=== PATIENT | female | born 1945 | race Caucasian/White ===

== ENCOUNTER 2020-02-19 05:23 | Day surgery (SDC) | payer MEDICARE, BC ==
[2020-02-12 15:39] LABS: BASOPHILS % (AUTO) 0.4 % (0-1); EOSINOPHILS # (AUTO) 0.1 X10'3 (0-0.9); EOSINOPHILS % (AUTO) 1.5 % (0-6); LYMPHOCYTES # (AUTO) 2.3 X10'3 (1.1-4.8); LYMPHOCYTES % (AUTO) 27.9 % (21-51); MEAN CORPUSCULAR HGB CONC 32.8 g/dL (33.0-36.5); MEAN CORPUSCULAR VOLUME 88.4 FL (78-98); MEAN PLATELET VOLUME 7.5 FL (7.4-10.4); MONOCYTES # (AUTO) 0.7 X10'3 (0-0.9); MONOCYTES % (AUTO) 8.7 % (2-12); NEUTROPHILS # (AUTO) 5.2 X10'3 (1.8-7.7); NEUTROPHILS % (AUTO) 61.5 % (42-75); PRE OP HEMATOCRIT 41.7 % (35.0-45.0); PRE OP HEMOGLOBIN 13.7 g/dL (12.0-16.0); PRE OP PLATELET COUNT 267 X10'3 (140-440); RED BLOOD COUNT 4.71 X10'6 (4.20-5.60); RED CELL DISTRIBUTION WIDTH 13.3 % (11.5-14.5)
[2020-02-12 16:00] LABS: ALBUMIN 3.7 G/DL (3.4-5.0); ALBUMIN/GLOBULIN RATIO 1.1 (1.1-1.5); ALKALINE PHOSPHATASE 94 IU/L (46-116); BLOOD UREA NITROGEN 13 MG/DL (7-18); BUN/CREATININE RATIO 15.1 (6.6-38.0); CALCIUM 9.2 MG/DL (8.5-10.1); CHLORIDE 108 MMOL/L (99-107); CREATININE 0.86 MG/DL (0.40-0.90); PRE OP ALT 13 U/L (30-65); PRE OP ANION GAP 5 (8-16); PRE OP AST 9 U/L (10-37); PRE OP BILIRUB, TOTAL 0.3 MG/DL (0.0-1.0); PRE OP GLUCOSE 103 MG/DL (70-104); PRE OP POTASSIUM 3.7 MMOL/L (3.4-5.1); PRE OP SODIUM 144 MMOL/L (135-145); TOTAL PROTEIN 7.2 G/DL (6.4-8.2); eGFR 65 ML/MIN
[2020-02-19] VITALS (14 sets, daily range): BP systolic 132–149; BP diastolic 66–89
[~2020-02-19] VITALS: Ht 170.2 cm; Wt 68.0 kg
[~2020-02-19 05:23] MED LIST: CHOL500049 PO; DEXL60CA3 PO; SIMV-42 PO; ringers solution, lacted 1,000 ML IV SCH
[2020-02-19] MEDS ORDERED: cefazolin/dext.iso 2gm/50ml 50 ML IV ONE (05:30)
[2020-02-19] MEDS ORDERED: famotidine 20mg tablet PO ONE (05:30)
[2020-02-19] MEDS ORDERED: LIDOcaine 1% (10mg/ml) 2ml vial ONE (06:12)
[2020-02-19] MEDS ORDERED: LIDOcaine 1% 30ml preserv. free vial ONE (06:36)
[2020-02-19] MEDS ORDERED: BUPIVAcaine/PF 2.5 mg/ml (0.25%) 30ml vial ONE (06:37)
[2020-02-19] MEDS ORDERED: fentaNYL/PF 50MCG/1 ML 2ML syringe ONE ×2 (07:26→08:20)
[2020-02-19] MEDS ORDERED: LIDOcaine 2% (20mg/ml) 5ml vial ONE (07:27)
[2020-02-19] MEDS ORDERED: propofol inj 20 ML IV ONE (07:27)
[2020-02-19] MEDS ORDERED: rocuronium 10mg/ml inj IV ONE (07:28)
[2020-02-19] MEDS ORDERED: sevoflurane 250ml liquid IH ONE (07:37)
[2020-02-19] MEDS ORDERED: neostigmine methylsulfate 1 MG/ML 10ml vial ONE (08:19)
[2020-02-19] MEDS ORDERED: ondansetron/PF 4mg/2ml inj ONE (08:19)
[2020-02-19] MEDS ORDERED: glycopyrrolate 0.2mg/ml inj ONE (08:19)
[2020-02-19] MEDS ORDERED: dexamethasone sod phosphate 4mg/ml inj. ONE (08:19)
[2020-02-19] MEDS ORDERED: ringers solution, lacted 1,000 ML IV SCH (08:41)
[2020-02-19] MEDS ORDERED: HYDROmorphone inj. 0.5 MG/0.5 ML DISP.SYRIN IV PRN ×2 (08:45)
[2020-02-19] MEDS ORDERED: ondansetron/PF 4mg/2ml inj IV PRN (08:45)
[2020-02-19] MEDS ORDERED: morphine 2 MG/ML inj. syringe IV PRN (08:45)
--- NOTE | 2020-02-19 08:57 | NUR ---
Received from OR via [facility] , accompanied by Anesthesiologist LAURENT and report given by Anesthesiolgist. PATIENT WITH 20G PIV IN LEFT UE RUNNING LR AT 100. DENIES PAIN AT THIS TIME TIME. PATIENT VSS. 3 ABDOMINAL BANDAIDS THAT ARE CDI. 10L MASK ON WITH 100% SATURATIONS. Addendum: 02/19/20 at 0912 by Haseeb Cuevas RN, RN Amended: Links added.
[2020-02-19] MEDS ORDERED: naloxone 0.4 mg/ml inj ONE (09:19)
[2020-02-19] MEDS ORDERED: HYDROcodone/acetaminophen 5mg/325mg tablet PO PRN (09:20)
--- NOTE | 2020-02-19 09:33 | NUR ---
ERROR IN PULSE OX READINGS ON 2ND AND 3RD VS. CORRECT SATS ARE 99-100% ON 10L MASK, Addendum: 02/19/20 at 0933 by Haseeb Cuevas RN, RN Amended: Links added.
--- NOTE | 2020-02-19 11:07 | NUR ---
All dc criteria for discharge home has been met. IV taken out without complications. All questions answered regarding dc paperwork. Vss. Significant other present to take patient home. Dressings cdi and vital signs stable. Taken out via wheelchair to personal vehicle where patient taken home by family/friend. SPOUSE PRESENT TO TAKE PATIENT HOME. VSS, DRESSINGS CDI. Addendum: 02/19/20 at 1121 by Haseeb Cuevas RN, RN Amended: Links added.
== END 2020-02-19 11:07 | disposition home or self-care (01) ==
LOC: PAS 05:23
PROVIDERS: ATTEND Surgery
DX: K40.90 Unilateral inguinal hernia, without obstruction or gangrene, not specified as recurrent (principal); K21.9 Gastro-esophageal reflux disease without esophagitis; E78.5 Hyperlipidemia, unspecified; Z88.2 Allergy status to sulfonamides; Z98.890 Other specified postprocedural states; Z88.8 Allergy status to other drugs, medicaments and biological substances; Z72.89 Other problems related to lifestyle; Z11.59 Encounter for screening for other viral diseases; Z80.3 Family history of malignant neoplasm of breast; Z82.49 Family history of ischemic heart disease and other diseases of the circulatory system; Z82.61 Family history of arthritis
CPT/HCPCS: 36415; 49650; 80053; 85025; 93005; C1781; J1100; J2001; J2310; J2405; J2704; J2710; J3010; J3490; J7120; U0003; A4215; A4618